=== PATIENT | female | born 1990 | race Two or more races ===

== ENCOUNTER 2016-09-14 08:18 | Emergency (ER) | payer MEDICAID ==
[2016-09-14 08:31] VITALS: BP 130/68; PULSE 84; RESP 16; TEMP 98.2; O2SAT 95
[2016-09-14 08:38] LABS: COLOR YELLOW; LEUKOCYTE ESTERASE,URINE NEGATIVE (NEGATIVE); NITRITE,URINE POSITIVE (NEGATIVE); PH,URINE 5.5 (5.0-7.5)
[2016-09-14] MEDS ORDERED: PHENAZOPYRIDINE HCL 200 MG TAB PO ONE ×2 (08:42→08:45)
[2016-09-14 08:51] LABS: BACTERIA 3+ /hpf (NONE SEEN); MUCUS 1+ /lpf (NONE-1+); RBC,URINE 0-1 /hpf (0-3); WBC,URINE 15-25 /hpf (0-3)
[2016-09-14] MEDS ORDERED: CEPHALEXIN 500 MG CAP PO ONE (08:55)
--- NOTE | 2016-09-14 08:59 | EDPHY ---
H & P Time Seen by Provider: 09/14/16 08:37 HPI/ROS: CHIEF COMPLAINT: Suprapubic pain HISTORY OF PRESENT ILLNESS: The patient is a 25-year-old female who presents to the emergency department with suprapubic pain for the past 2 days. She describes it has gradually worsened and is now moderate. It is worse to touch. She has had moderate dysuria. No frequency or hematuria. No flank pain. She denies fevers or chills. No nausea or vomiting. Patient still has an appetite. Patient is sexually active and has an IUD in place. Last menstrual period was 1 month ago. She has had no vaginal discharge or abnormal bleeding. REVIEW OF SYSTEMS: My complete review of systems is negative except as mentioned in the HPI. Past Medical/Surgical History: Negative Past surgical history: Negative Social history: The patient smokes Smoking Status: Current every day smoker Physical Exam: Vitals noted. Afebrile GENERAL: Well-appearing, in no acute distress, alert. HEENT: Eyes normal to inspection, normal pharynx, no signs of dehydration. NECK: No thyromegaly, no lymphadenopathy, supple. RESPIRATORY: Clear to auscultation bilaterally, no rales, rhonchi or wheezing. CVS: Regular rate and rhythm, no rubs, murmurs, or gallops. ABDOMEN: Soft, suprapubic tenderness to palpation with no rebound or guarding, nondistended, no organomegaly. No McBurney point tenderness. BACK: Normal to inspection, no CVA tenderness. SKIN: Normal color, no rash, warm, dry. No pallor. EXTREMITIES: No pedal edema, no calf tenderness, no Homans sign or cords, no joint swelling. NEURO/PSYCH: Alert and oriented x3, normal mood and affect, normal motor sensory exam. Constitutional: Initial Vital Signs Temperature (C) 36.8 C 09/14/16 08:29 Heart Rate 84 09/14/16 08:29 Respiratory Rate 16 09/14/16 08:29 Blood Pressure 130/68 H 09/14/16 08:29 O2 Sat (%) 95 09/14/16 08:29 O2 Delivery Mode Room Air Allergies/Adverse Reactions: No Known Allergies Allergy (Verified 09/14/16 08:31) Home Medications: Medication Instructions Recorded Cephalexin [Keflex (*)] 500 mg PO QID 7 Days 09/14/16 Ibuprofen [Motrin (*)] 600 mg PO TID #9 tab 09/14/16 Phenazopyridine HCl [Pyridium] 100 mg PO TID #6 tab 09/14/16 Medical Decision Making ED Course/Re-evaluation: In the emergency department I discussed possible etiologies with the patient. I answered all her questions. I urine was obtained. Patient was given Pyridium 200 mg orally. Patient's initial urine showed positive white cells as well as nitrates and 3+ bacteria. Because of this the patient will be given keflex orally. Urine culture was obtained. I discussed the results with the patient. Answered her questions. negative The patient was given warnings prior to leaving. She will return with worsening symptoms. She was instructed to take her entire course of antibiotics. Differential Diagnosis: My differential includes but is not limited to urinary tract infection, pyelonephritis, appendicitis, ovarian cyst, ovarian torsion, , ectopic , PID. The patient has an IUD in place. She has had no vaginal discharge or bleeding. I have considered IUD displacement. I doubt perforation. - Data Points Laboratory Results: 09/14/16 09/14/16 08:27 08:27 Urine Color YELLOW Urine Appearance CLEAR Urine pH 5.5 (5.0-7.5) Ur Specific [place] 1.025 (1.002-1.030) Urine Protein NEGATIVE (NEGATIVE) Urine Ketones NEGATIVE (NEGATIVE) Urine Blood NEGATIVE (NEGATIVE) Urine Nitrate POSITIVE H (NEGATIVE) Urine Bilirubin NEGATIVE (NEGATIVE) Urine Urobilinogen 0.2 EU EU (0.2-1.0) Ur Leukocyte Esterase NEGATIVE (NEGATIVE) Urine RBC 0-1 /hpf /hpf (0-3) Urine WBC 15-25 /hpf H /hpf (0-3) Ur Epithelial Cells 2+ /lpf H /lpf (NONE-1+) Urine Bacteria 3+ /hpf H /hpf (NONE SEEN) Urine Mucus 1+ /lpf /lpf (NONE-1+) Urine Glucose NEGATIVE (NEGATIVE) Urine Test NEGATIVE Medications Given: Discontinued Medications Cephalexin HCl (Keflex) 500 mg PO EDNOW ONE PRN Reason: Protocol Stop: 09/14/16 08:56 Last Admin: 09/14/16 08:59 Dose: 500 mg Phenazopyridine HCl (Pyridium) 100 mg PO EDNOW ONE Stop: 09/14/16 08:43 Last Admin: 09/14/16 08:47 Dose: Not Given Phenazopyridine HCl (Pyridium) 200 mg PO EDNOW ONE Stop: 09/14/16 08:46 Last Admin: 09/14/16 08:45 Dose: 200 mg Departure - Departure Disposition: Home, Routine, Self-Care Clinical Impression: Urinary tract infection Qualifiers: Urinary tract infection type: acute cystitis Hematuria presence: without hematuria Qualified Code(s): N30.00 - Acute cystitis without hematuria Condition: Good Instructions: Urinary Tract Infection in Women (ED) Additional Instructions: Return with increasing pain, fever, flank pain, vomiting or any other concerns. Take your entire course of antibiotics. Referrals: RODRI MAYER,. [Primary Care Provider] - As per Instructions Prescriptions: Cephalexin [Keflex (*)] 500 mg PO QID 7 Days Ibuprofen [Motrin (*)] 600 mg PO TID #9 tab Phenazopyridine HCl [Pyridium] 100 mg PO TID #6 tab
== END 2016-09-14 09:17 | disposition home or self-care (01) ==
LOC: CED 08:18
DX: N30.00 Acute cystitis without hematuria (principal); F17.200 Nicotine dependence, unspecified, uncomplicated; B96.20 Unspecified Escherichia coli [E. coli] as the cause of diseases classified elsewhere
CPT/HCPCS: 81003-PO; 81015-PO; 81025-PO